=== PATIENT | male | born 1970 | race Caucasian/White ===

== ENCOUNTER → 2017-08-04 | Outpatient (CLI) | payer BC ==
--- NOTE | 2017-08-04 16:34 | DIAGNOSTIC IMAGING REPORT ---
ULTRASOUND KIDNEYS AND BLADDER CLINICAL HISTORY: Generalized abdominal pain. COMPARISON STUDY: No priors. TECHNIQUE: Real-time, grayscale, and color flow sonography of the kidneys and bladder is performed. Images are reviewed in the transverse and longitudinal planes. FINDINGS: Kidneys: The kidneys are normal in size and echotexture. The right kidney measures 10.8 x 6.0 x 4.4 cm and the left kidney measures 11.5 x 7.0 x 5.0 cm. There is no hydronephrosis. No shadowing renal calculi are identified. A 1.5 cm cyst is incidentally noted on the left. There is no sonographic evidence of contour deforming renal mass lesion. No perinephric fluid is identified. Bladder: A small bladder diverticulum is suggested on the left. The bladder is otherwise normal in appearance. Bilateral ureteral jets were seen. IMPRESSION: 1. The kidneys are normal in size and without hydronephrosis. 2. A small bladder diverticulum is noted. Electronically signed by: Alexis Jordan M.D. 08/04/2017 4:33 PM Dictated Date/Time: 08/04/2017 4:32 PM
== END | disposition home or self-care (01) ==
LOC: C.ULTR 15:40
PROVIDERS: ATTEND Family Medicine
DX: R30.0 Dysuria (principal); N32.3 Diverticulum of bladder; R10.9 Unspecified abdominal pain